=== PATIENT | female | born 1990 | race Caucasian/White ===

== ENCOUNTER 2018-05-17 17:51 | Emergency (ER) | payer MEDICAID ==
[~2018-05-17] VITALS: Ht 157.5 cm; Wt 61.1 kg
[~2018-05-17 17:51] MED LIST: FERR240T9 PO; PREN1TAB79 PO
[2018-05-17 18:00] VITALS: BP 132/88; PULSE 99; RESP 16; Ht 157.5 cm; Wt 61.1 kg
--- NOTE | 2018-05-17 18:51 | ERD ---
ER Documentation Chief Complaint Chief Complaint CP X 1 DAY. HPI 27-year-old female, previously healthy, presents the emergency department, complaining of anterior chest pain for 1 day. She denies cough, no fever, no chills shortness of breath, no palpitations. No history of recent foreign traveling; no history of smoking. ROS All systems reviewed and are negative except as per history of present illness. Medications Home Meds Active Scripts Ibuprofen* (Motrin*) 400 Mg Tab, 400 MG PO Q8, #15 TAB Prov:NAZANIN JACKSON MD 05/17/18 Reported Medications Ferrous Gluconate (Iron) 1 Tab Tablet, 1 TAB PO BID, TAB 10/01/15 Vit W-Ca,Fe,FA(<1 mg) ( Vitamins) 1 Each Tablet, 1 EACH PO DAILY, TAB 10/01/15 Allergies Allergies: Coded Allergies: No Known Allergy (Unverified , 10/01/15) PMhx/Soc Medical and Surgical Hx: pt denies Medical Hx, pt denies Surgical Hx History of Surgery: No Anesthesia Reaction: No Hx Neurological Disorder: No Hx Respiratory Disorders: No Hx Cardiac Disorders: No Hx Psychiatric Problems: No Hx Miscellaneous Medical Probl: No Hx Alcohol Use: No Hx Substance Use: No Hx Tobacco Use: No Smoking Status: Never smoker Physical Exam Vitals Vital Signs Date Temp Pulse Resp B/P (MAP) Pulse Ox O2 O2 Flow FiO2 Time Delivery Rate 05/17/18 98.1 99 16 132/88 99 18:00 (103) Physical Exam Const: No acute distress Head: Atraumatic Eyes: Normal Conjunctiva ENT: Normal External Ears, Nose and Mouth. Neck: Full range of motion. No meningismus. Resp: Clear to auscultation bilaterally Cardio: Regular rate and rhythm, no murmurs Abd: Soft, non tender, non distended. Normal bowel sounds Skin: No petechiae or rashes Back: No midline or flank tenderness Ext: No cyanosis, or edema Neur: Awake and alert Psych: Normal Mood and Affect Results 24 hrs EKG read by me: Rate/Rhythm: Regular rate and rhythm at a rate of 85 Intervals: Normal No acute ST changes. No T wave inversion Impression: No evidence of acute ischemia or arrhythmia DIAGNOSTIC IMAGING REPORT Patient: PEYTON RINALDI : 1990 Age: 27 Sex: F MR #: [id number] [facility] #: [id number] DOS: 05/17/18 1849 Ordering MD: NAZANIN JACKSON MD Location: [facility] Room/Bed: PROCEDURE: XR Chest PA and Lateral CLINICAL INDICATION: Chest wall pain TECHNIQUE: PA and Lateral views of the chest were obtained. COMPARISON: None. FINDINGS: Cardiovascular: The cardiovascular silhouette appears unremarkable. Lung Rojas: Several nodular densities project through the left lower lung zone not of which are larger than 4 mm. A 3 mm nodular density projects to the lateral right lower lung zone. A 2 ml nodular density projects to the lateral right upper lung zone. No infiltrate is evident. Pleural Spaces: No pneumothorax is identified and no effusion is evident. Osseous Structures: The osseous structures appear intact. Soft Tissues: The soft tissues appear unremarkable. IMPRESSION: 1. Several pulmonary nodules no larger than 4 mm project through the left lower lung zone, and a 3 mm nodular density projects to the lateral right lower lung zone, and a 2 mm nodular density projects to the lateral right upper lung zone. If the patient is low risk, no follow-up is required. If the patient is high risk, and optional CT at 12 months would be recommended. 2. Otherwise, unremarkable chest. Procedures/MDM Vital signs stable. Differential diagnosis include but not limited to: URI, PNA, chostochondritis, GERD, musculoskeletal injury, less likely PE, pericarditis, endocarditis. Pertinent Data: 12 Lead ECG: Sinus rhythm, no ST changes, normal T wave, normal intervals Radiology: Chest x-rays: With multiple nodules Physical examination and clinical presentation consistent most likely with atypical chest pain most likely secondary to costochondritis. Incidental multiple nodules were fine on the x-rays, according to criteria, the patient needs a follow-up in 12 months Due to her low risk. During the ED course the patient remained stable, no new complaints. Results and clinical impression discussed with patient who agrees with management. The patient is stable to be treated outpatient and will be d ischarged home with a Rx for ibuprofen; some side effects of prescribed medications (headache, rash, nausea, vomiting, diarrhea, drowsiness, habituation, bleeding, hypertension, interactions with other medications) were reviewed. The patient was instructed to follow up with the primary care provider in the next 48h. If symptoms persist, worsen or new symptoms develop, then patient should return to the ED immediately. Instructions explained and given directly by me to the patient with acknowledgment and demonstrated understanding. Disclaimer: Inadvertent spelling and grammatical errors are likely due to EHR/dictation software use and do not reflect on the overall quality of patient care. Also, please note that the electronic time recorded on this note does not necessarily reflect the actual time of the patient encounter. Departure Diagnosis: Primary Impression: Costochondritis Additional Impression: Multiple lung nodules Condition: Stable Additional Instructions: Thank you very much for allowing us to participate in your care. Your health and safety is our top priority at [facility]. Call your primary care doctor TOMORROW for an appointment during the next 2-4 days and bring all the information and medications prescribed. Have prescriptions filled and follow precisely the directions on the label. If the symptoms get worse and your provider is unavailable, return to the Emergency Department immediately. NAZANIN JACKSON MD May 17, 2018 18:51
[2018-05-17] MEDS ORDERED: IBUP-1561 PO (19:38)
== END 2018-05-17 19:50 | disposition home or self-care (01) ==
LOC: FTE 17:51
DX: M94.0 Chondrocostal junction syndrome [Tietze] (principal); R91.1 Solitary pulmonary nodule
CPT/HCPCS: 71046; 93005; Z7502